=== PATIENT | male | born 1955 | race Caucasian/White ===

== ENCOUNTER 2016-12-13 07:27 | Inpatient (IN) | payer OTHER ==
[2016-12-13] MEDS ORDERED: ONDANSETRON INJ 4 MG/2 ML VIAL IV ONE (07:32)
[2016-12-13] MEDS ORDERED: NITROGLYCERIN 0.4 MG 25 EA TAB SL ONE (07:32)
[2016-12-13] MEDS ORDERED: ASPIRIN (CHEWABLE) 81 MG TAB PO ONE (07:33)
--- NOTE | 2016-12-13 07:46 | ED.PDOC ---
History of Present Illness - General Chief Complaint: Chest Pain/LA Stated Complaint: Chest pain Time Seen by Provider: 12/13/16 07:38 Source: patient, family Exam Limitations: no limitations - History of Present Illness Initial Comments: AWOKE WITH CHEST PAIN STARTING AT 3 AM. CP COMES AND GOES. POS DYSPNEA AT REST. DENIES CARDIAC HX OTHER THAN STATIN FOR HLP. NO HTN. TAKES MOBIC CHRONICALLY FOR ARTHRITIS. 93% ON RA. EKG SHOWS A FIB W/ RVR, RATE 155. Severity/Quality: moderate Location: substernal Activities at Onset: rest Prior Chest Pain/Cardiac Workup: no prior chest pain, no prior cardiac workup Improving Factors: nothing Allergies/Adverse Reactions: Allergies NO KNOWN ALLERGY Allergy (Verified 12/13/16 07:32) Review of Systems - Review of Systems Constitutional: States: diaphoresis. Denies: fever EENTM: States: no symptoms reported Respiratory: States: short of breath. Denies: cough, stridor, wheezing Cardiology: States: chest pain. Denies: edema, palpitations Gastrointestinal/Abdominal: States: no symptoms reported Genitourinary: States: no symptoms reported Musculoskeletal: States: no symptoms reported Skin: States: no symptoms reported Neurological: States: no symptoms reported Endocrine: States: no symptoms reported Hematologic/Lymphatic: States: no symptoms reported All other Systems: Reviewed and Negative Family Medical History - Family History Father Living Status: Hx Family Hypertension: Yes Physical Exam - Physical Exam General Appearance: Alert, Anxious Eyes, Ears, Nose, Throat Exam: PERRL/EOMI, normal ENT inspection Neck: non-tender, full range of motion, supple Respiratory: chest non-tender, lungs clear, normal breath sounds, no respiratory distress, no accessory muscle use Cardiovascular/Chest: tachycardia, irregularly irregular Peripheral Pulses: radial,right: 1+, radial,left: 1+ Gastrointestinal/Abdominal: normal bowel sounds, non tender, soft Extremity: normal range of motion, non-tender 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 THE [facility]ERIAL [facility]UNTER IS IN [place]OWN TOMORROW TOO, SO HE COULD SEE PT. 12/13/16 10:13 ADMITTING FOR FURTHER CARE. THANK YOU, [facility], AND [facility] FOR ACCEPTING ADMISSION. 12/13/16 10:18 GIVEN CARDIZEM 25 MG IV X 2. HR STILL IN LOW 100'S TO 130. STARTING METOPROLOL 50 PO TO HELP WITH RATE CONTROL AND HTN. - Results/Orders Results/Orders: PT STATES HE IS NOW ABLE TO BREATHE BETTER. HR NO LONGER 150S BUT STIL 1TEENS - 130'S, THUS GIVING 2ND DOSE CARDIZEM 25 MG IV. EKG AFIB. D-DIMER, COAGS, CARDIAC ENZ (1ST SET) NEG. CBC AND CMP UNREMARKABLE. BNP SLIGHTLY HIGH AT 297. NO SIGNS OF CHF. CXR = CARDIOMEGALY BUT NO HEART FAILURE SIGNS. - EKG/XRAY/CT EKG: Atrial, Fibrillation Departure - Departure Clinical Impression: New onset atrial fibrillation, Chest pain at rest, Acute dyspnea Disposition: Admit Patient Condition: Good Departure Forms: Patient Portal Self Enrollment Diet: resume usual diet Activity: walking as tolerated Referrals: Eloy Rodriguez III, MD [Primary Care Provider] - 1-2 Weeks Decision To Admit - Decistion To Admit Decision to Admit Reason: Admit from ER
--- NOTE | 2016-12-13 08:00 | RAD ---
EXAM DESCRIPTION: Chest,1 View CLINICAL HISTORY: chest pain COMPARISON: None available TECHNIQUE: AP portable chest FINDINGS: Lungs are clear. The heart is enlarged. No pleural fluid is evident. IMPRESSION: Cardiomegaly is observed without evidence of congestive heart failure. Electronically signed by: Eloy Kruger MD 12/13/2016 8:00 AM CDT
[2016-12-13] MEDS ORDERED: METOPROLOL TARTRATE 50 MG TAB PO ONE (10:12)
--- NOTE | 2016-12-13 11:03 | HP ---
SUPERVISING PHYSICIAN: Malik Ann MD CHIEF COMPLAINT: Shortness of breath and chest discomfort. HISTORY OF PRESENT ILLNESS: This is a 61-year-old, male patient who was in his usual state of health, although looking back, he thinks the symptoms may have started approximately one week ago, but he thought that some of his symptoms were due to indigestion or that he just was not feeling well. He awoke at 3 AM with some tightness across his chest. He felt like he could not get his breath and was gasping for air. He sat up and it helped and the symptoms resolved, but after lying down, they started again. He came to the Emergency Room. In the Emergency Room, he was found to be in atrial fibrillation with rapid ventricular response. He was given 2 doses of IV Cardizem as well as one dose of IV Lopressor. His heart rate was recorded as high as 156. His CBC was basically within normal limits as well as his CMP was within normal limits with the exception of his glucose being slightly high at 129. His initial cardiac enzymes were all negative. He did have an elevated BNP of 297. Chest x-ray per radiologic interpretation showed cardiomegaly without evidence of congestive heart failure. I was called for admission to the hospital. PAST MEDICAL HISTORY: 1. Hyperlipidemia. 2. Hypertension, presently on no medications. 3. Recurrent prostatitis. PAST SURGICAL HISTORY: 1. Left knee surgery. OUTPATIENT MEDICATIONS: 1. Pravastatin. 2. Meloxicam. 3. Aspirin. ALLERGIES: CIPRO, ALTHOUGH HE DENIES ANY KNOWLEDGE OF THE CIPRO ALLERGY. SOCIAL HISTORY: He is . He has two children. 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 He quit smoking approximately 20 years ago and he rarely drinks alcoholic beverages. REVIEW OF SYSTEMS: All negative with the exception as stated in the history of present illness. PHYSICAL EXAMINATION: VITAL SIGNS: Afebrile. Heart rate is running between 123 and 149. Blood pressure 131/80. Respiratory rate 16. O2 saturation 96%. GENERAL: This is a 61-year-old male patient who is sitting in a chair in his hospital room. He is in no acute distress. HEENT: Normocephalic, atraumatic. Pupils are equal and reactive. RESPIRATORY: Clear to auscultation bilaterally. CARDIOVASCULAR: Irregular rhythm, tachycardic rate. ABDOMEN: Soft, nondistended, nontender. Bowel sounds are positive. EXTREMITIES: No cyanosis, clubbing or edema. NEUROLOGIC: Awake, alert and oriented times three. SKIN: No rashes or lesions noted. LABORATORY: Labs and films are per the history of present illness with the exception of his second set of cardiac enzymes are negative. ASSESSMENT: 1. New onset of atrial fibrillation with rapid ventricular response. 2. Hyperlipidemia. 3. History of hypertension, presently on no antihypertensive. 4. Osteoarthritis. PLAN: We will the patient to the hospital. I will start him on some p.o. metoprolol as well as on Lovenox. I will consult Dr. Szymanski, global compensation director, tomorrow. I will give him IV Cardizem and IV Lopressor overnight to control his rate. We will do a lipid panel in the morning as well as some routine labs. We will monitor his rhythm closely. Otherwise, we will followup as needed. Dr. Ann is the collaborating physician and available for consultation. #[id number] [facility]
[2016-12-13] MEDS ORDERED: MORPHINE SULFATE INJ 10 MG/ML VIAL IV PRN (17:41)
[2016-12-13] MEDS ORDERED: NITROGLYCERIN 0.4 MG 25 EA TAB SL PRN (17:41)
[2016-12-13] MEDS ORDERED: SODIUM CHLORIDE 0.9% (FLUSH) 10 ML SYG IV PRN (17:41)
[2016-12-13] MEDS ORDERED: ACETAMINOPHEN 325 MG TAB PO PRN (17:41)
[2016-12-13] MEDS ORDERED: ENOXAPARIN SODIUM 40 MG/0.4 ML SYG SUBCU ONE (17:57)
[2016-12-13] MEDS ORDERED: ENOXAPARIN SODIUM 100 MG/ML SYG SUBCU ONE (17:57)
[2016-12-13] MEDS ORDERED: IV SET AND CAP CHANGE INJ INJ SCH (18:00)
[2016-12-13] MEDS ORDERED: METOPROLOL TARTRATE INJ 5 MG/5 ML VIAL IV ONE (19:44)
[2016-12-13] MEDS ORDERED: METOPROLOL TARTRATE 50 MG TAB PO SCH (21:00)
[2016-12-13] MEDS: SODIUM CHLORIDE 0.9% (FLUSH) 10 ML SYG IV SCH (23:27)
[2016-12-14] MEDS ORDERED: ENOXAPARIN SODIUM 60 MG/0.6 ML SYG SUBCU ONE (05:12)
[2016-12-14] MEDS ORDERED: ENOXAPARIN SODIUM 40 MG/0.4 ML SYG SUBCU ONE ×3 (05:12→11:20)
[2016-12-14] MEDS ORDERED: PANTOPRAZOLE SODIUM IV 40 MG VIAL IV SCH (06:30)
[2016-12-14] MEDS ORDERED: DIGOXIN INJ 0.5 MG/2 ML AMP IV ONE (08:04)
[2016-12-14] MEDS ORDERED: METOPROLOL TARTRATE 50 MG TAB PO SCH ×2 (09:00)
[2016-12-14] MEDS: SODIUM CHLORIDE 0.9% (FLUSH) 10 ML SYG IV SCH ×2 (09:29→21:00)
[2016-12-14] MEDS: ASPIRIN TABLET 325 MG TAB PO SCH (09:29)
[2016-12-14] MEDS ORDERED: ENOXAPARIN SODIUM 100 MG/ML SYG SUBCU ONE (11:20)
[2016-12-14] MEDS ORDERED: APIXABAN 2.5 MG TAB PO ONE (12:04)
[2016-12-14] MEDS ORDERED: METOPROLOL SUCCINATE XL 50 MG TAB ONE ×2 (12:05→17:24)
[2016-12-14] MEDS: DIGOXIN INJ 0.5 MG/2 ML AMP IV SCH ×2 (12:38→16:06)
[2016-12-14] MEDS ORDERED: PANTOPRAZOLE SODIUM TAB 40 MG PO ONE (17:23)
[2016-12-14] MEDS ORDERED: ENOXAPARIN SODIUM 100 MG/ML SYG SUBCU SCH (18:00)
[2016-12-14] MEDS ORDERED: ENOXAPARIN SODIUM 40 MG/0.4 ML SYG SUBCU SCH (18:00)
--- NOTE | 2016-12-14 21:23 | PN ---
DATE: 12/14/16 SUPERVISING PHYSICIAN: Malik Ann M.D. SUBJECTIVE: The patient is walking around in his hospital room. He denies any chest pain, shortness of breath, nausea, vomiting, diarrhea, diaphoresis or palpitations. OBJECTIVE: VITAL SIGNS: He is afebrile, heart rate is between 100 and 120, blood pressure 129/99, respiratory rate 20, O2 sat is 92%. RESPIRATORY: Clear to auscultation bilaterally. CARDIAC: Irregular rhythm, regular to tachycardic rate. ABDOMEN: Soft, nondistended, non-tender. Bowel sounds are positive. NEUROLOGIC: He is awake, alert and oriented times three. LABORATORY: WBCs are 11.4, hemoglobin 15.5, hematocrit 46.7, platelets 150. His third set of cardiac enzymes are negative. Metabolic panel is basically within normal limits with the exception of his glucose is slightly high at 116 and BUN is slightly high at 19. AST is 50, ALT 63. Triglycerides are 185, LDL is 82.9, HDL is 34. All other labs and films have been reviewed via the EMR. ASSESSMENT: 1. New onset of atrial fibrillation with rapid ventricular response. 2. Hyperlipidemia. 3. History of hypertension presently on no antihypertensive medications. 4. Osteoarthritis. PLAN: We will continue present supportive care that includes cardiac monitoring overnight. The patient saw Dr. Szymanski today and has made arrangements for his cardiac workup over the next several weeks. He is to see Dr. Szymanski in [place] next Saturday. He will have a followup with Dr. Rodriguez on discharge. The patient required several doses of IV Cardizem and IV Lopressor overnight as well as he was given 1 gram of Digoxin in 3 divided doses. At this point, his heart rate is controlled. He was on Lovenox but that has been discontinued and he was changed to Eliquis 5 mg b.i.d. as per Dr. Szymanski' recommendations. He is also on Metoprolol succinate 50 mg at night. We will watch his rate overnight and hopefully it stays below 100. If his heart rate does get up above 120, we can give him an additional 0.125 of Digoxin p.o. He may need his Metoprolol increased for better rate control. We will monitor it closely. Hopefully he can be discharged tomorrow. Dr. Ann is the collaborating physician available for consultation. #[id number] [facility]
[2016-12-14] MEDS: APIXABAN 2.5 MG TAB PO SCH (21:49)
[2016-12-14] MEDS: METOPROLOL SUCCINATE XL 50 MG TAB PO SCH (21:49)
[2016-12-14] MEDS ORDERED: OMEPRAZOLE CAP 20 MG CAP PO ONE (21:50)
[2016-12-14] MEDS: OMEPRAZOLE CAP 20 MG CAP PO ONE ×2 (21:52→21:55)
[2016-12-14] MEDS ORDERED: DIGOXIN 0.25 MG TAB PO ONE (22:17)
[2016-12-14] MEDS ORDERED: DIGOXIN 0.125 MG TAB ONE (22:26)
[2016-12-15] MEDS ORDERED: METOPROLOL TARTRATE INJ 5 MG/5 ML VIAL IV ONE (00:24)
[2016-12-15] MEDS ORDERED: DIGOXIN 0.25 MG TAB PO ONE (03:41)
[2016-12-15] MEDS ORDERED: DIGOXIN 0.125 MG TAB ONE (03:44)
[2016-12-15] MEDS: PANTOPRAZOLE SODIUM TAB 40 MG PO SCH (05:35)
[2016-12-15] MEDS: ASPIRIN TABLET 325 MG TAB PO SCH (08:31)
[2016-12-15] MEDS: APIXABAN 2.5 MG TAB PO SCH ×2 (08:31→20:41)
[2016-12-15] MEDS: SODIUM CHLORIDE 0.9% (FLUSH) 10 ML SYG IV SCH ×2 (08:32→20:41)
[2016-12-15] MEDS: DIGOXIN 0.125 MG TAB PO SCH (14:45)
[2016-12-15] MEDS: METOPROLOL SUCCINATE XL 50 MG TAB PO SCH (20:41)
--- NOTE | 2016-12-15 21:41 | PN ---
DATE: 12/15/16 SUPERVISING PHYSICIAN: Malik Ann M.D. SUBJECTIVE: The patient is doing much better today. He did require additional Cardizem this morning and Digoxin for an increase in his ventricular rate. He denied any chest pains, shortness of breath or palpitations. OBJECTIVE: VITAL SIGNS: T max 99.1, pulse 88, blood pressure 106/71, respirations 19 with O2 saturation showing 92 to 97% on room air. I's and O's show a positive balance of 340 with 1240 in, 900 out. He has had 1 bowel movement. CHEST: Lungs are clear to auscultation bilaterally. HEART: Irregular rate and rhythm with intermittent RVR requiring ongoing medication adjustment. ABDOMEN: Obese but soft, non-tender. Positive bowel sounds. NEUROLOGIC: He is alert and oriented times three. LABORATORY: White count 11.4 today, hemoglobin 15.5, hematocrit 46.7, platelet count 150,000. Differential shows to be without a left shift. Chemistries show normal electrolytes with potassium 4.7, BUN 19, creatinine 1.3. Liver functions showing some elevation, AST is 50, ALT is 63, bilirubin was within normal limits. Magnesium 1.8. He had 4 sets of troponin that showed to be less than 0.2. RADIOLOGY: There are no additional radiographic studies. ASSESSMENT: 1. New onset atrial fibrillation with rapid ventricular response requiring digitalization as well as intermittent Cardizem in addition to a beta ric with Metoprolol and close monitoring. 2. Hyperlipidemia. 3. History of hypertension having not currently being on antihypertensive medications. 4. Osteoarthritis. PLAN: Will continue to monitor the patient on cardiac telemetry tonight and insure that his medication regimen is going to keep for good control of his ventricular rate. He remains on Eliquis and will do an additional 0.125 of Digoxin today. Anticipate discharge tomorrow to continue to have close clinical followup in the outpatient setting with Dr. Szymanski as well as his primary care provider. Until then, will continue to monitor the patient closely and treat appropriately. #[id number] [facility]
[2016-12-16] MEDS: PANTOPRAZOLE SODIUM TAB 40 MG PO SCH (06:15)
[2016-12-16] MEDS: APIXABAN 2.5 MG TAB PO SCH (09:35)
[2016-12-16] MEDS: ASPIRIN TABLET 325 MG TAB PO SCH (09:35)
[2016-12-16] MEDS: SODIUM CHLORIDE 0.9% (FLUSH) 10 ML SYG IV SCH (09:36)
[2016-12-16] MEDS ORDERED: DIGOXIN 0.25 MG TAB PO SCH (12:00)
[2016-12-16] MEDS: DIGOXIN 0.125 MG TAB PO SCH (12:02)
[2016-12-16] MEDS: METOPROLOL SUCCINATE XL 50 MG TAB PO SCH (12:23)
[2016-12-16 12:48] VITALS: BP 126/81; TEMP 98.7; O2SAT 96
[2016-12-16] MEDS ORDERED: PRAVASTATIN SODIUM 20 MG TAB PO SCH (21:00)
[2016-12-17] MEDS ORDERED: ASPIRIN EC 81 MG TAB PO SCH (09:00)
[2016-12-17] MEDS ORDERED: MELOXICAM 7.5 MG TAB PO SCH (09:00)
--- NOTE | 2016-12-23 08:26 | DS ---
SUPERVISING PHYSICIAN: Malik Ann MD DISCHARGE DIAGNOSIS: 1. New onset atrial fibrillation with rapid ventricular response requiring digitalization as well as intermittent Cardizem in addition to a beta ric with Metoprolol and close monitoring showing to be stable on digoxin and Metoprolol prior to discharge. 2. Hyperlipidemia. 3. History of hypertension having not currently being on antihypertensive medications. 4. Osteoarthritis. HISTORY OF PRESENT ILLNESS: Mr. Little is a 61 year-old male patient that was in his usual state of health, although looking back it seems he had symptoms that may have started approximately one week before admission. He thought that he had some symptoms that were due to indigestion or that he just was not feeling well. He awoke at 3 AM with some tightness in his chest. He felt like he could not get his breath and was gasping for air. He sat up to see if this would help and the symptoms resolved, but after lying down they started again. He came to the Emergency Room at that point. In the Emergency Room, he was found to be in atrial fibrillation with rapid ventricular response. He was given 2 doses of IV Cardizem as well as one dose of IV Lopressor. His heart rate was recorded as high as 156. His CBC was basically within normal limits as well as his CM. His initial cardiac enzymes were all negative. He did have an elevated BNP of 297. Chest x-ray per radiologic interpretation showed cardiomegaly without evidence of congestive heart failure. At that point, he was admitted to the medical/surgical floor for further stabilization and monitoring. LABORATORY: His initial CBC showed a white count of 10.2, at discharge it was 8.5, hemoglobin was stable at 15.3, hematocrit 45.5, platelet count 142,000, differential showed to be within normal limits. Coagulation studies showed a PT of 11.2, PTT of 30.8 with a D dimer of less than 200. Chemistries on admission showed normal electrolytes with a potassium of 4.5, magnesium 1.8, calcium 9.4, glucose 129. Liver functions showed to be within normal limits except for a slightly elevated AST of 50, ALT of 63. He did have an elevated BNP of 297. He had 4 sets of troponin that were all negative at being less than 0.02. Lipid panel showed triglycerides at 185 with cholesterol 133. LDL was 82, HDL 34. On date of discharge, electrolytes showed to be within normal limits with a 4.3 potassium, BUN 17, creatinine 1.9. Urinalysis showed to be within normal limits except 15 ketones noted on dipstick. He did have 2 digoxin levels initially on 12/15 after initiation of digoxin, post level showed 1.3 and on 12/16, date of discharge, he continued to show stabilization at 1.2. . MICROBIOLOGY: No specimens submitted for review. RADIOLOGIC: Chest x-ray per radiology interpretation showed lungs to be clear with cardiomegaly without any evidence of congestive heart failure. Initial EKG in the Emergency Room showed rate of 154 with atrial fibrillation with rapid ventricular response. He had multiple EKGs completed through admission as well as on telemetry and continued to show atrial fibrillation but a much more controlled rate through the admission after digitalization and started on a beta ric. HOSPITAL COURSE: Mr. Little was admitted as noted in the history of present illness for a new onset of atrial fibrillation with rapid ventricular response. He was given medication in the Emergency Department that included Lopressor and Cardizem and admitted. He was continued on metoprolol initially at 50 mg once daily and then started on digoxin and loaded on digoxin over 24 hours and then continued up to a dose of 0.25 prior to discharge. He did have several episodes of continuation of rapid ventricular response at times which resolved with low-dose Cardizem. He was started on Lovenox through the hospitalization and transitioned to Eliquis prior to discharge. He showed to be stable clinically and telemetry showed no additional rhythms, he remained in afebrile. He was felt clinically well enough to be discharged. He did have a consultation with Dr. Szymanski, floral arranger, who recommended the patient be continued on metoprolol at night as well as Eliquis and digoxin as tolerated. On the morning of discharge, he showed to have a stable rhythm, continued to be in atrial fibrillation and was clinically stable. PLAN: The patient was discharged on 12/16/16 to have close clinical followup with both his primary care physician, Dr. Rodriguez, in 7 days or sooner and had a scheduled appointment to see Dr. Szymanski the following Saturday after discharge. He was told to resume his home medications as prior to admission and continue with new prescription as directed. He is to return to the hospital should he have any change in his condition, any shortness of breath, any chest pains or other concerning symptoms or call 911. At discharge, new prescriptions included: 1. Eliquis 5 mg twice a day. Samples were given until he can see Dr. Rodriguez, 2.5 mg. 2. He was given a prescription for Eliquis 5 mg twice a day, #60. 3. Digoxin 0.25 mg daily, #30. 4. Toprol XL 50 mg oral at bedtime, #30. DIET AT DISCHARGE: Regular as tolerated. ACTIVITIES: As tolerated. CONDITION ON DISCHARGE: Stable and improved. #[id number] [facility]
== END 2016-12-16 11:30 | disposition home or self-care (01) | DRG 310 ==
LOC: ER 07:27 → OBSVTOIN 11:01 → MS 11:01
PROVIDERS: ADMIT Family Medicine; ATTEND Nurse Practitioner Acute Care
DX: I48.91 Unspecified atrial fibrillation (principal); E78.2 Mixed hyperlipidemia; I10 Essential (primary) hypertension; M19.90 Unspecified osteoarthritis, unspecified site; Z87.891 Personal history of nicotine dependence; Z79.82 Long term (current) use of aspirin; Z79.899 Other long term (current) drug therapy; Z79.1 Long term (current) use of non-steroidal anti-inflammatories (NSAID)

== ENCOUNTER → 2017-04-08 | Outpatient (CLI) | payer BC | END | disposition home or self-care (01) | LOC: GMAL 14:51 | PROVIDERS: ATTEND Family Medicine | DX: D51.3 Other dietary vitamin B12 deficiency anemia (principal); E55.9 Vitamin D deficiency, unspecified ==

== ENCOUNTER → 2018-05-06 | Outpatient (CLI) | payer OTHER | LOC: GMAL 13:38 | PROVIDERS: ATTEND Family Medicine | DX: D51.3 Other dietary vitamin B12 deficiency anemia (principal); R53.83 Other fatigue; E55.9 Vitamin D deficiency, unspecified; E29.1 Testicular hypofunction; R73.9 Hyperglycemia, unspecified; Z12.5 Encounter for screening for malignant neoplasm of prostate | CPT/HCPCS: 82306; 82607; 84402; 84403; 84443; G0103 ==

== ENCOUNTER → 2018-06-26 | Outpatient (CLI) | payer OTHER | LOC: GMAL 10:21 | PROVIDERS: ATTEND Family Medicine | DX: R97.20 Elevated prostate specific antigen [PSA] (principal) ==

== ENCOUNTER → 2018-08-13 | Outpatient (CLI) | payer OTHER | LOC: GMAL 14:30 | PROVIDERS: ATTEND Family Medicine | DX: M10.9 Gout, unspecified (principal) ==

== ENCOUNTER → 2019-01-05 | Outpatient (CLI) | payer OTHER | LOC: GMAL 12:32 | PROVIDERS: ATTEND Family Medicine | DX: R97.20 Elevated prostate specific antigen [PSA] (principal); E78.2 Mixed hyperlipidemia; I10 Essential (primary) hypertension; E29.1 Testicular hypofunction; M10.9 Gout, unspecified ==

== ENCOUNTER → 2019-01-29 | Outpatient (CLI) | payer OTHER | LOC: GMAL 10:27 | PROVIDERS: ATTEND Family Medicine | DX: R97.20 Elevated prostate specific antigen [PSA] (principal); M10.9 Gout, unspecified ==

== ENCOUNTER → 2019-05-06 | Outpatient (CLI) | payer OTHER | LOC: GMAL 12:27 | PROVIDERS: ATTEND Family Medicine | DX: M10.9 Gout, unspecified (principal); R97.20 Elevated prostate specific antigen [PSA] ==

== ENCOUNTER → 2019-08-06 | Outpatient (CLI) | payer OTHER ==
--- NOTE | 2019-08-07 11:36 | MRI ---
EXAM DESCRIPTION: Cervical Spine: MRI. CLINICAL HISTORY: 64 years Male CERVICALGIA COMPARISON: Cervical spine radiographs April 2019. TECHNIQUE: Multiplanar, high-field MRI, multiple sequences, non-contrast Cervical spine. FINDINGS: C3-C4: Disc space preserved with normal signal in the disc. Left uncinate spur. Bilateral facet joints are negative. Mild narrowing of the left neural foramen. Canal and right neuroforamen are patent. C4-C5: Minimal disc desiccation and minimal anterior and posterior bulging. Midline hyperintense T2 annular fissure in the posterior margin. Left uncinate spur and disc spur bulge into the left neural foramen which is borderline stenotic. Right neuroforamen is patent. C5-C6: Moderate disc space loss and disc desiccation. Superior and inferior endplate reactive changes with anterior disc bulge and spur. Posterior broad-based bulge abutting the cord. Minimal posterior ligament thickening. Borderline mild central canal stenosis. Bilateral uncinate spurs bilateral mild facet arthrosis. Bilateral neural foraminal stenosis. C6-C7: Severe disc space loss and disc desiccation. Anterior bulging and endplate ridging. Posterior disc osteophyte complex into the canal abutting the cord. Bilateral posterior ligament hypertrophy. Borderline mild central canal stenosis. Minimal arthrosis of the left facet. Left uncinate spur and left neural foraminal stenosis. Right neuroforamen is patent. C7-T1: Minimal disc desiccation with disc space preserved and no bulging. Bilateral facet hypertrophic arthrosis with bilateral mild narrowing of the foramina more on the left than the right. T1-T2: Disc desiccation minimal bulge into the foramina and canal and bilateral facet joint hypertrophic arthrosis. Moderate neural foraminal narrowing bilaterally. Canal is patent. Normal signal in the C2-C3 disc with no bulging. Disc space preserved. Canal and neural foramina are patent. Facet joints unremarkable. Spinal alignment trace kyphosis C4-C6. No cord compression or cord edema. Atlantoaxial joint negative.. Base of the cerebellar tonsils is above the foramen magnum. Paravertebral soft tissues show lymph nodes in the right carotid space but not enlarged. Vertebral bodies are not compressed at any level. Otherwise normal marrow signal in the remaining vertebral bodies and the posterior elements. IMPRESSION: 1. Spondylosis C5-C6 with desiccated and bulging disc. Borderline mild central canal stenosis. Bilateral neural foraminal stenosis. Correlate for bilateral C6 radiculopathy. 2. Severe spondylosis C6-C7 with posterior disc spur bulge. Borderline mild central canal stenosis. Left neural foraminal stenosis. Correlate for left C7 radiculopathy. 3. Left uncinate spur at C4-C5 and disc spur bulge into the left neural foramen which is borderline stenotic. Correlate for left C5 radiculopathy. Posterior midline annular fissure in the bulging disc. Electronically signed by: Tito Grace MD 08/07/2019 11:35 AM [facility]
== END ==
LOC: MRI 12:23
PROVIDERS: ATTEND Family Medicine
DX: M47.892 Other spondylosis, cervical region (principal); M50.322 Other cervical disc degeneration at C5-C6 level; M50.021 Cervical disc disorder at C4-C5 level with myelopathy; M50.022 Cervical disc disorder at C5-C6 level with myelopathy; M50.023 Cervical disc disorder at C6-C7 level with myelopathy; M48.02 Spinal stenosis, cervical region; M25.78 Osteophyte, vertebrae

== ENCOUNTER → 2019-08-11 | Outpatient (CLI) | payer OTHER | LOC: GMAL 10:19 | PROVIDERS: ATTEND Family Medicine | DX: R97.20 Elevated prostate specific antigen [PSA] (principal); N41.0 Acute prostatitis ==

== ENCOUNTER → 2019-08-24 | Outpatient (CLI) | payer OTHER | LOC: GMAL 12:36 | PROVIDERS: ATTEND Family Medicine | DX: M10.9 Gout, unspecified (principal); R97.20 Elevated prostate specific antigen [PSA]; E78.49 Other hyperlipidemia; I10 Essential (primary) hypertension ==

== ENCOUNTER → 2019-09-01 | Outpatient (CLI) | payer OTHER | LOC: GMAL 14:22 | PROVIDERS: ATTEND Family Medicine | DX: R06.02 Shortness of breath (principal) ==

== ENCOUNTER → 2019-09-28 | Outpatient (CLI) | payer OTHER | DX: M48.02 Spinal stenosis, cervical region (principal); M47.892 Other spondylosis, cervical region ==

== ENCOUNTER → 2020-02-02 | Outpatient (CLI) | payer OTHER | LOC: GMAL 10:19 | PROVIDERS: ATTEND Family Medicine | DX: R97.20 Elevated prostate specific antigen [PSA] (principal); I10 Essential (primary) hypertension; I48.0 Paroxysmal atrial fibrillation ==

== ENCOUNTER → 2020-03-18 | Outpatient (CLI) | payer OTHER ==
--- NOTE | 2020-03-20 15:09 | US ---
US THYROID CLINICAL STATEMENT:65 years Male THYROID NODULE. No palpable mass. No prior thyroid surgery or medical therapy. COMPARISON: None TECHNIQUE: Transcutaneous scanning, grayscale and Doppler modes. FINDINGS: Size right thyroid lobe: 4.6 X 2.3 x 2.1 cm Size left thyroid lobe: 6.0 x 3.1 x 1.7 cm Size isthmus: 0.7 cm Estimated total number of nodules greater than or equal to 1 cm: 2. Left lobe is enlarged. No distinct cysts, no fluid collection, no large calcifications. Nodule 1: Size: 2.5 x 2.1 x 1.7 cm Location: Isthmus left Composition: solid or almost completely solid: 2 points Echogenicity: hypoechoic: 2 points Shape: wider than tall: 0 points Margins: smooth: 0 points Echogenic foci: none: 0 points ACR Total Points: 4; ACR TI-RADS risk category: TR4 - moderately suspicious nodule. Nodule 2: Size: 2.1 x 1.9 x 1.1 cm Location: Left Lower Composition: solid or almost completely solid: 2 points Echogenicity: isoechoic: 1 point Shape: wider than tall: 0 points Margins: smooth: 0 points Echogenic foci: none: 0 points. ACR Total Points: 3; ACR TI-RADS risk category: TR3 - mildly suspicious nodule. Nodule 3: Size: 0.9 x 0.9 x 0.6 cm Location: Isthmus right Composition: solid or almost completely solid: 2 points Echogenicity: hypoechoic: 2 points Shape: wider than tall: 0 points Margins: ill-defined: 0 points Echogenic foci: none: 0 points ACR Total Points: 4; ACR TI-RADS risk category: TR4 - moderately suspicious nodule. ACR Total Points: 4; ACR TI-RADS risk category: TR4 - moderately suspicious nodule. No solid dominant mass in the soft tissues. No distinct cyst or fluid collection. No large calcifications. IMPRESSION: 1. Nodule 1: ACR TI-RADS 2017 Category TR4. Recommend: Ultrasound-guided fine needle aspiration. Recommendations based upon [employer] Best Practice recommendations and ACR TI-RADS 2017 guidelines. Please see below*. 2. Nodule 2: ACR TI-RADS 2017 Category TR3. Recommend: Follow-up ultrasound in 1 year. 3. Nodule 3: ACR TI-RADS 2017 Category TR4. Recommend: No further follow-up. 4. Soft tissue around the thyroid gland is unremarkable. *ACR TI-RADS 2017 Recommendations for imaging follow-up of nodules (baseline study): TR1: No FNA or follow up TR2: No FNA or follow up TR3: FNA if >/= 2.5 cm, follow up if 1.5 - 2.4 cm in 1, 3, and 5 years TR4: FNA if >/= 1.5 cm, follow up if 1.0 - 1.4 cm in 1, 2, 3, and 5 years TR5: FNA if >/= 1.0 cm, follow up if 0.5 - 0.9 cm every year for 5 years ACR TI-RADS recommends that no more than two nodules with the highest ACR TI-RADS total point should be biopsied and no more than four nodules should be followed. These recommendations do not apply to patients with increased risk for thyroid cancer or patients with symptomatic thyroid disease. Electronically signed by: Tito Grace MD 03/20/2020 3:07 PM CDT
== END ==
LOC: US 10:15
PROVIDERS: ATTEND Family Medicine
DX: E04.2 Nontoxic multinodular goiter (principal)

== ENCOUNTER → 2020-05-13 | Outpatient (CLI) | payer OTHER | LOC: GMAL 12:50 | PROVIDERS: ATTEND Family Medicine | DX: R30.0 Dysuria (principal) ==

== ENCOUNTER → 2020-05-24 | Outpatient (CLI) | payer OTHER | LOC: GMAL 16:41 | PROVIDERS: ATTEND Family Medicine | DX: E04.1 Nontoxic single thyroid nodule (principal); R60.0 Localized edema ==

== ENCOUNTER → 2020-06-29 | Outpatient (CLI) | payer OTHER | LOC: GMAL 11:01 | PROVIDERS: ATTEND Family Medicine | DX: E05.80 Other thyrotoxicosis without thyrotoxic crisis or storm (principal) ==

== ENCOUNTER → 2020-08-04 | Outpatient (CLI) | payer MEDICARE, OTHER | LOC: GMAL 11:23 | PROVIDERS: ATTEND Family Medicine | DX: R53.83 Other fatigue (principal); I10 Essential (primary) hypertension ==